=== PATIENT | male | born 1965 | race Two or more races ===

== ENCOUNTER 2023-02-22 06:00 | Day surgery (SDC) | payer OTHER ==
[2023-02-19 10:15] LABS: INR 0.99; PROTHROMBIN TIME 10.4 SECONDS (9.0-11.5)
[~2023-02-22 06:00] MED LIST: HORIZANT300 MG PO; LIPITOR40 MG PO; LOSARTAN POTASS50 MG PO; TOPROL XL50 M1 PO
== END 2023-02-22 14:10 | disposition home or self-care (01) ==
LOC: CIR.AMB 06:00
PROVIDERS: ATTEND Surgery
DX: K80.10 Calculus of gallbladder with chronic cholecystitis without obstruction (principal); Z20.822 Contact with and (suspected) exposure to COVID-19